=== PATIENT | male | born 2000 | race Caucasian/White ===

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

== ENCOUNTER 2022-02-03 07:05 | Emergency (ER) | payer MEDICAID, SELFPAY ==
[2022-02-03 07:06] VITALS: BP 128/81; PULSE 107; RESP 16; TEMP 35.9; O2SAT 99; BMI 21.8
--- NOTE | 2022-02-03 07:20 | EX.ED.UPPERE ---
HPI History of Present Illness Chief Complaint: Laceration Narrative Narrative: 21-year-old male presenting with a laceration to the right fourth digit over the PIP. He states that he cut this on a pop can. Patient was able to get bleeding under control. He cleaned his wound with alcohol before coming. His immunizations are up-to-date. [id number]. No significant pain. PFSH PFSH Medical History Anxiety Home Medications hydroxyzine pamoate 50 mg PO TID PRN PRN #20 capsule 10/24/21 [Rx Last Taken Unknown] Allergy/AdvReac Type Severity Reaction Status Date / Time No Known Allergies Allergy Verified 10/24/21 11:06 Social History Smoking Status: Current every day smoker tobacco type: cigarettes ROS ROS ED Constitutional Constitutional ED: Denies chills or fever(s) Eyes Eyes: Denies blurry vision or diplopia ENT ENT ED: Denies rhinorrhea or sore throat Cardiovascular Cardiovascular: Denies chest pain or palpitations Respiratory/Chest Respiratory/Chest: Denies cough or dyspnea Gastrointestinal Gastrointestinal: Denies abdominal pain, nausea or vomiting Genitourinary Genitourinary ED: Denies dysuria or hematuria Musculoskeletal Musculoskeletal: Denies myalgias or neck pain Integumentary Reports other Details: Superficial laceration right fourth MCP Neurologic Neurologic: Denies headache(s) or weakness Psychiatric Psychiatric: Denies anxiety or depression EXAM Physical Exam Const Vital Signs: 02/03/22 07:06 Temperature 96.6 F L Temperature Source Temporal Pulse Rate 107 H Respiratory Rate 16 Blood Pressure 128/81 H Blood Pressure Mean 96 Pulse Ox 99 Oxygen Delivery Method Room Air Positive well nourished General Appearance ED: NAD HEENT Reports moist mucous membranes normocephalic and atraumatic Eyes PERRL Resp normal respiratory effort and clear to auscultation bilaterally Cardio regular rate and regular rhythm Neuro oriented x3 Sensorium / Orientation: alert Psych mental status grossly normal Skin Skin Narrative: 0.5 linear superficial laceration in a vertical lie overlying the MCP. No tendon exposure. No bone exposure. No active bleeding. Right hand neurovascular intact brisk cap refill to all 5 fingers. MDM MDM MDM Narrative Medical decision making narrative: Patient presents with superficial laceration over the right fourth MCP and a vertical lie however this is only about 0.5 cm apparatus. There is no active bleeding. When the finger is extended the wound margins are well approximated. I did offer to place a suture into this area or glue the area, but also feel as though this would heal with the finger in extension and a dressing placed over this. I gave patient the options for any of these and he chose the dressing. Patient's immunizations up-to-date. His wound was cleaned and dressed. He is given wound care instructions and return precautions. Impression: 1. 0.5 cm laceration right fourth digit Lab Data Attestation: I reviewed the patient's lab results. Discharge Plan Triage Chief Complaint: Laceration ED Provider: Satnam Sierra Dx/Rx/DC Orders Instructions: ED Laceration Small or ... Prescriptions: No Action hydroxyzine pamoate [hydroxyzine pamoate] 25 MG capsule 50 mg PO TID PRN PRN (Reason: Anxiety) Qty: 20 RF: 0 Primary Care Provider: Care Physician,No Primary Referrals: Ben Guerrero MD [STAFF PHYSICIAN] - 3-5 Days Care Physician,No Primary [Primary Care Provider] - Disposition Disposition: Home, Self Care
== END 2022-02-03 07:40 | disposition home or self-care (01) ==
LOC: ED 07:30
PROVIDERS: Emergency Provider Student in an Organized Health Care Education/Training Program; Visit Provider Student in an Organized Health Care Education/Training Program
DX: S61.214A Laceration without foreign body of right ring finger without damage to nail, initial encounter (principal); W26.8XXA Contact with other sharp object(s), not elsewhere classified, initial encounter; F17.210 Nicotine dependence, cigarettes, uncomplicated
CPT/HCPCS: 99282